=== PATIENT | female | born 1980 | race Caucasian/White ===

== ENCOUNTER 2024-01-01 22:57 | Emergency (ER) | payer OTHER ==
[~2024-01-01] VITALS: Ht 162.6 cm; Wt 75.0 kg
[2024-01-01 23:08] VITALS: O2SAT 99
[2024-01-02] MEDS: ACETAMINOPHEN 500MG TABLET PO ONE (01:00)
[2024-01-02 02:18] LABS: HCG SCREEN NEGATIVE
[2024-01-02] MEDS ORDERED: HYDR-4001 MT ×3 (03:20→16:52)
[2024-01-02 03:44] VITALS: BP 163/91; PULSE 86; RESP 12; TEMP 36.55848; O2SAT 100
== END 2024-01-02 03:45 | disposition home or self-care (01) ==
LOC: ER 22:57
DX: S02.32XA Fracture of orbital floor, left side, initial encounter for closed fracture (principal); S01.81XA Laceration without foreign body of other part of head, initial encounter; S06.0XAA Concussion with loss of consciousness status unknown, initial encounter; G43.909 Migraine, unspecified, not intractable, without status migrainosus; W18.39XA Other fall on same level, initial encounter; Y93.89 Activity, other specified; Y92.89 Other specified places as the place of occurrence of the external cause; Y99.8 Other external cause status
CPT/HCPCS: 99284; 84703; 70450; 70486; 72125; Z7610 ×2